=== PATIENT | male | born 1995 | race Caucasian/White ===

== ENCOUNTER 2021-11-21 14:05 | Emergency (ER) | payer MEDICARE ==
[2021-11-21] MEDS ORDERED: Sodium Chloride 0.9% 1000 ML 1,000 ML IV STA (14:11)
[2021-11-21] MEDS ORDERED: Zofran 4 MG/2 ML VIAL IV ONE (14:11)
[2021-11-21] MEDS ORDERED: MORPHINE SULFATE 4 MG INJ IV ONE (14:11)
[2021-11-21] MEDS ORDERED: MORPHINE SULFATE 4 MG INJ ONE (14:22)
[2021-11-21] MEDS ORDERED: Zofran 4 MG/2 ML VIAL ONE (14:22)
[2021-11-21] MEDS ORDERED: Sodium Chloride 0.9% 1000 ML 1,000 ML ONE (14:23)
[2021-11-21 14:28] LABS: Absolute Neutrophil Ct (ANC) 7.81 x10^3/uL (1.4-6.9); Basophil (Absolute #) 0.01 x10^3/uL (0-0.4); Eosinophil % 3.2 % (0.00-5.0); Eosinophil (Absolute #) 0.31 x10^3/uL (0-0.5); Hematocrit 48.9 % (42-50); Hemoglobin 16.6 g/dL (12.5-18.0); Lymphocyte (Absolute #) 1.03 x10^3/uL (1.0-4.6); Lymphocytes % 10.5 % (24.0-44.0); Mean Cell Volume 89.7 fL (78-100); Mean Corpuscular Hemoglobin 30.5 pg (26-32); Mean Corpuscular Hgb Concent. 33.9 g/dL (32-36); Mean Platelet Volume 9.6 fL (7.5-11.0); Monocyte (Absolute #) 0.64 x10^3/uL (0.0-1.3); Monocytes % 6.5 % (0.0-12.0); Neutrophil % 79.4 % (36.0-66.0); Platelet Count 310 x10^3/uL (150-450); Red Blood Count 5.45 x10^6/uL (4.1-5.6); Red Cell Distribution Width 12.8 % (11.5-14.0); White Blood Count 9.8 x10^3/uL (4.0-10.5)
--- NOTE | 2021-11-21 14:37 | ERPHSYRPT ---
- History of Present Illness Time Seen by Provider: 11/21/21 14:36 Historian: patient Patient Subjective Stated Complaint: Pt has had liquid diarrhea for 2 days and began vomiting today, pain in upper medial gastric region and LLQ and pain radiates to the back Triage Nursing Assessment: Pt brought to the ER by his girlfriend, hypertensive, rates pain as 9/10, abdominal pain that radiates to the back with N&V, states that for about the past 2 weeks he would take a couple bites of food and then he would feel like he was going to vomit but denies any abdominal pain prior to yesterday, pulses normal, skin n/w/d, pt ate chicken yesterday and girlfriend made the comment that it may have been undercooked Physician History: Patient is a 26-year-old male presents to our emergency department for evaluation of vomiting diarrhea and abdominal pain. Symptoms started 2 days ago. Pain described as an ache that is localized just left of the umbilicus and tends to shoot upwards towards his epigastrium. Pain rated 9 out of 10. No trauma. No fever. No rash. Patient admits to decreased p.o. No obvious change in urine output. Symptoms are mild to moderate in intensity. No specific worsening improving factors. Patient states he may have eaten undercooked chicken yesterday however his symptoms were present before eating the suspected undercooked chicken. Patient otherwise healthy. He voices no other complaints or concerns at this time. Portions of this note were created with voice recognition technology. There may be grammatical, spelling, punctuation or sound alike errors Timing/Duration: day(s) (2 days ago) Activities at Onset: none Quality: aching Abdominal Pain Onset Location: LLQ Pain Radiation: back Severity of Pain-Max: moderate Severity of Pain-Current: mild Modifying Factors: Improves With: nothing Associated Symptoms: diarrhea, nausea, vomiting, No fever/chills Allergies/Adverse Reactions: Penicillins Allergy (Verified 11/21/21 14:25) Hx Influenza Vaccination/Date Given: No Hx Pneumococcal Vaccination/Date Given: No Travel Risk - International Travel Have you traveled outside of the country in past 3 weeks: No - Coronavirus Screening Are you exhibiting any of the following symptoms?: Yes Symptoms: Vomiting/Diarrhea Close contact with a COVID-19 positive Pt in past 14-21 Days: No - Vaccine Status Have you recieved a Covid-19 vaccination: No - Review of Systems Constitutional: No Symptoms, No Fever, No Chills Eyes: No Symptoms Ears, Nose, & Throat: No Symptoms Respiratory: No Symptoms, No Cough, No Dyspnea Cardiac: No Symptoms, No Chest Pain, No Edema, No Syncope Abdominal/Gastrointestinal: No Symptoms, No Abdominal Pain, No Nausea, No Vomiting, No Diarrhea Genitourinary Symptoms: No Symptoms, No Dysuria Musculoskeletal: No Symptoms, No Back Pain, No Neck Pain Skin: No Symptoms, No Rash Neurological: No Symptoms, No Dizziness, No Focal Weakness, No Sensory Changes Psychological: No Symptoms Endocrine: No Symptoms Hematologic/Lymphatic: No Symptoms Immunological/Allergic: No Symptoms All Other Systems: Reviewed and Negative - Past Medical History Pertinent Past Medical History: Yes Psycho-Social History: Bipolar - Past Surgical History Past Surgical History: No - Social History Smoking Status: Current every day smoker Exposure to second hand smoke: Yes Drug Use: none Patient Lives Alone: No - Nursing Vital Signs Nursing Vital Signs: Initial Vital Signs Temperature 97.9 F 11/21/21 14:11 Pulse Rate 82 11/21/21 14:11 Blood Pressure 140/95 11/21/21 14:11 O2 Sat by Pulse Oximetry 95 11/21/21 14:11 Pain Scale Pain Intensity 0 - Physical Exam General Appearance: no apparent distress, alert Eye Exam: PERRL/EOMI, eyes nml inspection Ears, Nose, Throat Exam: normal ENT inspection, pharynx normal, moist mucous membranes Neck Exam: normal inspection, non-tender, supple, full range of motion Respiratory Exam: normal breath sounds, lungs clear, No respiratory distress Cardiovascular Exam: regular rate/rhythm, normal heart sounds Gastrointestinal/Abdomen Exam: soft, other (Mild tenderness to palpation at the periumbilical region left lower quadrant and slightly up towards the left flank. Overlying soft tissue intact. No signs of trauma. No testicular pain. No testicular tenderness.), No tenderness, No mass, No guarding Back Exam: normal inspection, normal range of motion, No CVA tenderness, No vertebral tenderness Extremity Exam: normal inspection, normal range of motion, pelvis stable Neurologic Exam: alert, oriented x 3, cooperative, normal mood/affect, nml cerebellar function, sensation nml, No motor deficits Skin Exam: normal color, warm, dry SpO2 Interpretation: normal SpO2: 95 O2 Delivery: Room Air - Course Nursing assessment & vital signs reviewed: Yes - CT Exams Abdomen/Pelvis CT Interpretation: Tele-radiologist Report (CT abdomen pelvis negative for obstruction. Normal appendix. Ileus versus gastroenterocolitis observed.) Ordered Tests: Active Orders 24 hr Category Date Time Status IV Insertion STAT Care 11/21/21 14:11 Completed ABDOMEN AND PELVIS W/0 CONTRAS [CT] Stat Exams 11/21/21 14:12 Completed CBC W DIFF Stat Lab 11/21/21 11:41 Completed CMP Stat Lab 11/21/21 11:41 Completed LIPASE Stat Lab 11/21/21 11:41 Completed TROPONIN Q4H Lab 11/21/21 11:41 Completed TROPONIN Q4H Lab 11/21/21 18:15 Ordered TROPONIN Q4H Lab 11/21/21 22:15 Ordered Medication Summary Discontinued Medications Generic Name Dose Route Start Last Admin Trade Name Freq PRN Reason Stop Dose Admin Sodium Chloride 1,000 mls @ 999 mls/hr 11/21/21 14:11 11/21/21 15:31 Sodium Chloride 0.9% 1000 Ml IV 11/21/21 15:11 Infused .Q1H1M STA Infusion Sodium Chloride Confirm 11/21/21 14:23 Sodium Chloride 0.9% 1000 Ml Administered 11/21/21 14:24 Dose 1,000 mls @ ud .ROUTE .STK-MED ONE Morphine Sulfate 4 mg 11/21/21 14:11 11/21/21 14:25 Morphine Sulfate 4 Mg/Ml Injection IV 11/21/21 14:12 4 mg STAT ONE Administration Morphine Sulfate Confirm 11/21/21 14:22 Morphine Sulfate 4 Mg/Ml Injection Administered 11/21/21 14:23 Dose 4 mg .ROUTE .STK-MED ONE Ondansetron HCl 4 mg 11/21/21 14:11 11/21/21 14:25 Ondansetron Hcl 4 Mg/2 Ml Vial IV 11/21/21 14:12 4 mg STAT ONE Administration Ondansetron HCl Confirm 11/21/21 14:22 Ondansetron Hcl 4 Mg/2 Ml Vial Administered 11/21/21 14:23 Dose 4 mg .ROUTE .STK-MED ONE Lab/Rad Data: Laboratory Result Diagrams 11/21/21 11:41 11/21/21 11:41 Laboratory Results 11/21/21 11/21/21 11/21/21 Range/Units 11:41 11:41 11:41 WBC 9.8 (4.0-10.5) x10^3/uL RBC 5.45 (4.1-5.6) x10^6/uL Hgb 16.6 (12.5-18.0) g/dL Hct 48.9 (42-50) % MCV 89.7 (78-100) fL MCH 30.5 (26-32) pg MCHC 33.9 (32-36) g/dL RDW 12.8 (11.5-14.0) % Plt Count 310 (150-450) x10^3/uL MPV 9.6 (7.5-11.0) fL Gran % 79.4 H (36.0-66.0) % Immature Gran % (Auto) 0.3 (0.00-0.4) % Nucleat RBC Rel Count 0.0 (0.00-0.1) % Eos # (Auto) 0.31 (0-0.5) x10^3/uL Immature Gran # (Auto) 0.03 (0.00-0.03) x10^3u/L Absolute Lymphs (auto) 1.03 (1.0-4.6) x10^3/uL Absolute Monos (auto) 0.64 (0.0-1.3) x10^3/uL Absolute Nucleated RBC 0.00 (0.00-0.01) x10^3u/L Lymphocytes % 10.5 L (24.0-44.0) % Monocytes % 6.5 (0.0-12.0) % Eosinophils % 3.2 (0.00-5.0) % Basophils % 0.1 (0.0-0.4) % Absolute Granulocytes 7.81 H (1.4-6.9) x10^3/uL Basophils # 0.01 (0-0.4) x10^3/uL Sodium 141 (137-145) mmol/L Potassium 4.1 (3.5-5.1) mmol/L Chloride 106 (98-107) mmol/L Carbon Dioxide 24 (22-30) mmol/L Anion Gap 15.0 (5-15) MEQ/L BUN 9 (9-20) mg/dL Creatinine 0.97 (0.66-1.25) mg/dL Estimated GFR > 60.0 ML/MIN Glucose 107 H (74-106) mg/dL Calcium 9.9 (8.4-10.2) mg/dL Total Bilirubin 0.80 (0.2-1.3) mg/dL AST 42 (17-59) U/L ALT 41 (0-50) U/L Alkaline Phosphatase 104 (38-126) U/L Troponin I < 0.012 (0.000-0.034) ng/mL Serum Total Protein 9.1 H (6.3-8.2) g/dL Albumin 5.0 (3.5-5.0) g/dL Lipase 48 (23-300) U/L - Progress Progress: improved Progress Note: Patient reassessed. He feels much better laboratory work-up unremarkable. CT abdomen pelvis shows a normal appendix. Findings include ileus versus gastroenterocolitis 11/21/21 15:39 We will attempt a p.o. challenge. Patient tolerated p.o. challenge will discharge home. 11/21/21 15:40 Patient tolerated p.o. No vomiting. Abdominal pain resolved. We contacted patient's primary care doctor and arrange for follow-up appointment on 24 November at 10 AM. A prescription for Protonix was forwarded to patient's pharmacy. Patient was advised a clear liquid diet. Patient agrees to return to our ED if symptoms worsen or if he develops any new or concerning symptoms. Portions of this note were created with voice recognition technology. There may be grammatical, spelling, punctuation or sound alike errors 11/21/21 16:20 Counseled pt/family regarding: lab results, diagnosis, need for follow-up, rad results - Departure Departure Disposition: Home Clinical Impression: Ileus, Gastroenterocolitis Condition: Stable Critical Care Time: No Referrals: PORTIA DURAND [ACTIVE STAFF] - Follow up/PCP as directed Instructions: Gastritis (DC) Additional Instructions: Discharge/Care Plan CHRISTINE ZAPATA was seen on 11/21/21 in the Emergency Room. The patient was counseled regarding Diagnosis,Lab results, Imaging studies, need for follow up and when to return to the Emergency Room. Prescriptions given: Discharge Note I have spoken with the patient and/or caregivers. I have explained the patient's condition, diagnosis and treatment plan based on the information available to me at this time. I have answered the patient's and/or caregiver's questions and addressed any concerns. The patient and/or caregivers have as good understanding of the patient's diagnosis, condition and treatment plan as can be expected at this point. The vital signs have been stable. The patient's condition is stable and appropriate for discharge from the emergency department. The patient will pursue further outpatient evaluation with the primary care physician or other designated or consulting physician as outlined in the discharge instructions. The patient and/or caregivers are agreeable to this plan of care and follow-up instructions have been explained in detail. The patient and/or caregivers have received these instruction. The patient/and or caregivers are aware that any significant change in condition or worsening of symptoms s hould prompt an immediate return to this or the closest emergency department or call 911. Prescriptions: PANTOPRAZOLE 40 mg Tablet [Protonix 40MG Tablet] 40 mg PO QAM 14 Days #14 tab
[2021-11-21 14:43] LABS: ALKALINE PHOSPHATASE 104 U/L (38-126); BLOOD UREA NITROGEN 9 mg/dL (9-20); CHLORIDE 106 mmol/L (98-107); Calcium 9.9 mg/dL (8.4-10.2); Carbon Dioxide 24 mmol/L (22-30); Creatinine 1 0.97 mg/dL (0.66-1.25); EST GLOMERULAR FILTRATION RATE > 60.0 ML/MIN; Glucose 107 mg/dL (74-106); LIPASE 48 U/L (23-300); Potassium 4.1 mmol/L (3.5-5.1); SGOT/AST 42 U/L (17-59); SGPT/ALT 41 U/L (0-50); SODIUM 141 mmol/L (137-145); Total Protein 9.1 g/dL (6.3-8.2)
--- NOTE | 2021-11-21 15:01 | XRAY ---
Indication: Abdomen pain, nausea, and diarrhea. Multiple contiguous axial images obtained through the abdomen and pelvis without contrast. Comparison: None Lung bases clear. Heart not enlarged. Noncontrasted stomach and bowel loops appear nonobstructed with normal appendix. Stomach is mildly fluid distended with intraluminal medication/bismuth. Small and large bowel loops are also mildly uniformly fluid distended throughout with fluid leveling. Findings favor ileus versus gastroenterocolitis. No free fluid/air. Remaining liver, gallbladder, pancreas, spleen, adrenal glands, kidneys, ureters, bladder, and aorta are unremarkable for noncontrast exam. Osseous structures intact. No ventral or inguinal hernias. Impression: CT features as detailed favoring ileus versus gastroenterocolitis.
[2021-11-21 15:30] VITALS: BP 116/77; PULSE 74
[2021-11-21 16:06] VITALS: O2SAT 95
== END 2021-11-21 16:19 | disposition home or self-care (01) ==
LOC: ED 14:05
DX: K56.7 Ileus, unspecified (principal); K52.9 Noninfective gastroenteritis and colitis, unspecified; R11.2 Nausea with vomiting, unspecified; R10.32 Left lower quadrant pain; Z72.0 Tobacco use; Z28.310 Unvaccinated for COVID-19
CPT/HCPCS: 36000; 36415; 74176; 80053; 83690; 84484; 85025; 96360; 96374; 96375; 99284; J2270; J2405

== ENCOUNTER 2021-12-25 20:41 | Emergency (ER) | payer MEDICARE ==
--- NOTE | 2021-12-25 20:48 | ERPHSYRPT ---
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 Saturday morning he woke up and was in a lot of pain so he did not go into work. He was off Saturday and Saturday. He came in this evening to be evaluated. Patient denies fall or acute traumatic injury. Timing/Duration: day(s) (4) Method of Injury: bending, lifting, twisted, turning Quality: aching Back Pain Location: lumbar spine (Lumbar spine level left side paraspinous muscle tenderness), paraspinous muscles (Left) Severity of Pain-Max: mild (Mild to moderate) Severity of Pain-Current: mild (To moderate) Associated Symptoms: lower back pain, muscle spasms (Left lumbar spine), No urinary incontinence, No loss of bowel control, No problems urinating, No numbness in legs/feet Previous symptoms: no prior history Allergies/Adverse Reactions: Penicillins Allergy (Verified 11/21/21 14:25) Hx Influenza Vaccination/Date Given: No Hx Pneumococcal Vaccination/Date Given: No Travel Risk - International Travel Have you traveled outside of the country in past 3 weeks: No - Coronavirus Screening Are you exhibiting any of the following symptoms?: No Close contact with a COVID-19 positive Pt in past 14-21 Days: No - Vaccine Status Have you recieved a Covid-19 vaccination: No - Review of Systems Constitutional: No Symptoms Eyes: No Symptoms Ears, Nose, & Throat: No Symptoms Respiratory: No Symptoms Cardiac: No Symptoms Abdominal/Gastrointestinal: No Symptoms Genitourinary Symptoms: No Symptoms Musculoskeletal: Back Pain Skin: No Symptoms Neurological: No Symptoms Psychological: No Symptoms Endocrine: No Symptoms Hematologic/Lymphatic: No Symptoms Immunological/Allergic: No Symptoms All Other Systems: Reviewed and Negative - Past Medical History Pertinent Past Medical History: Yes Psycho-Social History: Bipolar - Past Surgical History Past Surgical History: No - Social History Smoking Status: Current every day smoker Exposure to second hand smoke: Yes Drug Use: none Patient Lives Alone: No - Nursing Vital Signs Nursing Vital Signs: Initial Vital Signs Temperature 98.4 F 12/25/21 21:10 Pulse Rate 71 12/25/21 21:10 Respiratory Rate 18 12/25/21 21:10 Blood Pressure 144/84 12/25/21 21:10 O2 Sat by Pulse Oximetry 97 12/25/21 21:10 Pain Scale Pain Intensity 4 - Physical Exam General Appearance: no apparent distress, alert, anxiety Eye Exam: PERRL/EOMI, eyes nml inspection Ears, Nose, Throat Exam: normal ENT inspection, moist mucous membranes Neck Exam: normal inspection, non-tender, supple, full range of motion Respiratory Exam: airway intact, No chest tenderness, No respiratory distress Gastrointestinal Exam: No tenderness Rectal Exam: not done Back Exam: normal inspection, normal range of motion, muscle spasm (Left lower lumbar region), No CVA tenderness, No vertebral tenderness Extremity Exam: normal inspection, normal range of motion, pelvis stable Neurologic Exam: alert, oriented x 3, cooperative, 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, normal mood/affect, nml cerebellar function, nml station & gait, sensation nml Skin Exam: normal color, warm, dry Lymphatic Exam: No adenopathy SpO2 Interpretation: normal O2 Delivery: Room Air - Course Nursing assessment & vital signs reviewed: Yes Ordered Tests: Medication Summary Generic Name Dose Route Start Last Admin Trade Name Freq PRN Reason Stop Dose Admin Cyclobenzaprine HCl 10 mg 12/25/21 21:41 Cyclobenzaprine Hcl 10 Mg Tablet PO 12/25/21 21:42 STAT ONE Naproxen 500 mg 12/25/21 21:41 Naproxen 500 Mg Tablet PO 12/25/21 21:42 STAT ONE - Progress Progress: unchanged Counseled pt/family regarding: diagnosis, need for follow-up, rad results - Departure Departure Disposition: Home Clinical Impression: Back pain Condition: Stable Critical Care Time: No Referrals: JESSE FORD PA [Primary Care Provider] - Follow up/PCP as directed Additional Instructions: Take your medication as prescribed. Follow-up with your primary care provider for further evaluation and management. Forms: Work/School Release Form Prescriptions: Cyclobenzaprine HCl 10 mg [Cyclobenzaprine 10 MG] 10 mg PO TID #10 tablet Naproxen 500 mg [Naprosyn 500 MG] 500 mg PO BID #10 tablet
[2021-12-25 21:18] VITALS: O2SAT 97
[2021-12-25] MEDS ORDERED: Cyclobenzaprine 10 MG PO ONE (21:41)
[2021-12-25] MEDS ORDERED: Naprosyn 500 MG PO ONE (21:41)
[2021-12-25] MEDS ORDERED: Cyclobenzaprine 10 MG ONE (21:51)
[2021-12-25 22:10] VITALS: BP 124/83; PULSE 68
== END 2021-12-25 22:10 | disposition home or self-care (01) ==
LOC: ED 20:41
DX: M54.50 Low back pain, unspecified (principal); Z72.0 Tobacco use; Z28.310 Unvaccinated for COVID-19
CPT/HCPCS: 99282; A9270-GY